=== PATIENT | female | born 2000 | race Caucasian/White ===

== ENCOUNTER 2022-10-30 20:53 | Emergency (ER) | payer MEDICAID ==
[2022-10-30] MEDS ORDERED: Sodium Chloride 0.9% 10 ML Syringe FLUSH PRN (21:11)
[2022-10-30] MEDS ORDERED: Sodium Chloride 0.9% 1,000 ML IV ONE (21:11)
[2022-10-30] MEDS ORDERED: Sodium Chloride 0.9% 2.5 ML Syringe FLUSH PRN (21:11)
[2022-10-30] MEDS ORDERED: levETIRAcetam 500 MG Tab PO SCH (21:15)
[2022-10-30 21:39] LABS: APPEARANCE,URINE CLEAR; BILIRUBIN,URINE NEGATIVE (NEGATIVE); COLOR,URINE YELLOW; GLUCOSE,URINE NEGATIVE (NEGATIVE); KETONES,URINE NEGATIVE (NEGATIVE); LEUKOCYTE ESTERASE,URINE SMALL (NEGATIVE); NITRITE,URINE NEGATIVE (NEGATIVE); OCCULT BLOOD,URINE NEGATIVE (NEGATIVE); PROTEIN,URINE NEGATIVE (NEGATIVE); UROBILINOGEN,URINE 0.2 EU/dL (<2.0)
[2022-10-30 21:53] LABS: BASOPHILS PERCENT AUTO 0.5 % (0.0-1.5); EOSINOPHILS ABSOLUTE AUTO 0.2 K/uL (0.0-0.7); EOSINOPHILS PERCENT AUTO 1.9 % (0.0-7.0); HEMATOCRIT 34.8 % (36.0-46.0); HEMOGLOBIN 10.1 g/dL (12.0-16.0); LYMPHOCYTES ABSOLUTE AUTO 2.3 K/uL (0.6-2.4); LYMPHOCYTES PERCENT AUTO 29.7 % (16.0-40.0); MEAN CORPUSCULAR VOLUME 69.5 fL (80.0-98.0); MONOCYTES ABSOLUTE AUTO 0.4 K/uL (0.0-0.8); MONOCYTES PERCENT AUTO 5.6 % (0.0-15.0); NEUTROPHILS ABSOLUTE AUTO 4.8 K/uL (1.4-5.7); NEUTROPHILS PERCENT AUTO 62.3 % (48.0-80.0); NRBC ABSOLUTE 0 K/uL; PLATELET COUNT,PLT 364 K/uL (150-400); RED BLOOD CELL COUNT 5.01 M/uL (4.30-5.90)
[2022-10-30 21:55] LABS: BACTERIA,URINE 3+ (NEGATIVE); MUCUS,URINE LIGHT (NONE-MOD); RBC,URINE 0-2 (0-2/HPF); SQUAMOUS EPITHELIAL CELLS,UR MANY
[2022-10-30 22:04] LABS: A/G RATIO 1.2 (0.9-1.6); ALBUMIN 4.4 g/dL (3.4-5.0); BILIRUBIN TOTAL 0.2 mg/dL (0.2-1.0); CALCIUM 9.3 mg/dL (8.5-10.1); CARBON DIOXIDE,CO2 26.6 mmol/L (21.0-32.0); CREATININE 0.8 mg/dL (0.6-1.0); EST CRCL DRUG DOSING (CG) 83.94 mL/min; POTASSIUM,K 3.3 mmol/L (3.5-5.1)
[2022-10-30] MEDS ORDERED: Nitrofurantoin Monohydrate/Macrocrystalline 100 MG Cap PO ONE (22:16)
[2022-10-30 22:47] LABS: MEAN CORPUSCULAR HEMOGLOBIN 20.2 pg (27.0-32.0)
== END 2022-10-30 22:50 | disposition home or self-care (01) ==
LOC: MW.ED 20:53
DX: G40.909 Epilepsy, unspecified, not intractable, without status epilepticus (principal); N39.0 Urinary tract infection, site not specified; Z79.899 Other long term (current) drug therapy; Z88.5 Allergy status to narcotic agent
CPT/HCPCS: 36415; 80053; 81001; 81025; 85025; 86900; 86901; 96360; 99284; A9270; J3490; J7030; 99283